=== PATIENT | female | born 1995 | race African-American/Black ===

== ENCOUNTER 2018-08-29 12:33 | Emergency (ER) | payer MEDICAID ==
[~2018-08-29] VITALS: Ht 167.6 cm; Wt 65.0 kg
[2018-08-29 12:44] VITALS: BP 127/76
== END 2018-08-29 15:55 | disposition left against medical advice (07) ==
LOC: ER 12:33
DX: R10.9 Unspecified abdominal pain (principal); Z53.21 Procedure and treatment not carried out due to patient leaving prior to being seen by health care provider

== ENCOUNTER 2019-03-29 21:45 | Observation (INO) | payer OTHER ==
[~2019-03-29] VITALS: Ht 157.5 cm; Wt 89.8 kg
[2019-03-30] MEDS ORDERED: ACETAMINOPHEN 500MG TABLET PO NR (00:15)
[2019-03-30] MEDS ORDERED: LACTATED RINGERS 1,000 ML IV NR (00:15)
== END 2019-03-30 03:15 | disposition home or self-care (01) ==
LOC: 8 EST LDRP 21:45
PROVIDERS: ADMIT Specialist; ATTEND Specialist
DX: O42.92 Full-term premature rupture of membranes, unspecified as to length of time between rupture and onset of labor (principal); Z3A.40 40 weeks gestation of pregnancy
CPT/HCPCS: 76815; 76818; 99281; G0378; 96360; 96361

== ENCOUNTER 2019-03-30 22:10 | Inpatient (IN) | payer OTHER ==
[~2019-03-30] VITALS: Ht 157.5 cm; Wt 89.4 kg
[2019-03-30] MEDS ORDERED: DEXT 5%/LR + PITOCIN 20UNITS/L 1,000 ML IV SCH (22:48)
[2019-03-30] MEDS ORDERED: CARBOPROST TROMETHAMINE 250 MCG/ML AMPUL IM PRN (23:00)
[2019-03-30] MEDS ORDERED: LIDOCAINE HCL 1% 20ML VIAL (Pyxis) INJ INFIL SCH (23:00)
[2019-03-30] MEDS ORDERED: BUTORPHANOL TARTRATE 2 MG/ML VIAL IV PRN (23:00)
[2019-03-30] MEDS ORDERED: METHYLERGONOVINE MALEATE 0.2 MG/ML IM PRN (23:00)
[2019-03-30] MEDS ORDERED: NALOXONE HCL 0.4 MG/ML 1ML VIAL IM PRN (23:00)
[2019-03-30] MEDS: ONDANSETRON HCL 4MG/2ML INJ IV PRN (23:16)
[2019-03-30] MEDS: LACTATED RINGERS 1,000 ML IV SCH (23:38)
[2019-03-30] MEDS ORDERED: ROPIVACAINE HCL/PF EPIDURAL 200 ML EPI SCH (23:45)
[2019-03-30 23:55] LABS: BASOPHILS % 0.4 % (0.0-2.0); EOSINOPHILS % 0.1 % (0.0-5.0); HEMOGLOBIN. 12.4 g/dL (12.0-16.0); LYMPHOCYTES % 7.6 % (20.0-50.0); MEAN CORPUSCULAR HEMOGLOBIN 32.2 pg (28.0-32.0); MEAN PLATELET VOLUME 11.1 fl (7.4-10.4); MONOCYTES % 6.7 % (2.0-8.0); NEUTROPHILS % 85.2 % (40.0-76.0); PLATELET 183 x1000/uL (130-400); RED BLOOD CELL COUNT 3.85 mill/uL (4.2-5.4); RED CELL DISTRIBUTION WIDTH 15.2 % (11.6-14.6)
[2019-03-30 23:56] LABS: INR 0.9; PARTIAL THROMBOPLASTIN TIME 27.5 sec (23.4-31.0); PROTHROMBIN TIME 9.5 sec (9.6-11.0)
[2019-03-31] MEDS ORDERED: PENICILLIN G POTASSIUM 5 MMU in DEXT 5% WATER 100 ML IV SCH ×2
[2019-03-31 00:24] LABS: HEPATITIS B SURFACE ANTIGEN NEGATIVE
[2019-03-31] MEDS: LACTATED RINGERS 1,000 ML IV SCH ×2 (00:53→08:45)
[2019-03-31 01:53] LABS: CLARITY URINE CLEAR (CLEAR); COLOR URINE YELLOW (YELLOW); KETONES URINE 1+ (NEGATIVE); LEUKOCYTE ESTERASE URINE NEGATIVE (NEGATIVE); NITRITE URINE NEGATIVE (NEGATIVE); OCCULT BLOOD URINE 1+ (NEGATIVE); PH URINE 6.5 (4.5-8.0); PROTEIN URINE TRACE (NEGATIVE); SPECIFIC GRAVITY URINE 1.025 (1.005-1.030)
[2019-03-31 02:28] LABS: *AMPHETAMINES SCREEN URINE NEGATIVE (NEGATIVE); *BARBITURATES SCREEN URINE NEGATIVE (NEGATIVE); *BENZODIAZEPINES SCREEN URINE NEGATIVE (NEGATIVE); *COCAINE SCREEN URINE NEGATIVE (NEGATIVE); METHADONE URINE SCREEN NEGATIVE (NEGATIVE); OPIATES URINE SCREEN NEGATIVE (NEGATIVE); PHENCYCLIDINE URINE SCREEN NEGATIVE (NEGATIVE)
[2019-03-31 02:29] LABS: CANNABINOID URINE SCREEN NEGATIVE (NEGATIVE)
[2019-03-31] MEDS: PENICILLIN G POTASSIUM 2.5 MMU in DEXTROSE 5% WATER 50 ML IV SCH ×2 (03:34→08:45)
[2019-03-31] MEDS: ONDANSETRON HCL 4MG/2ML INJ IV PRN (05:40)
[2019-03-31] MEDS ORDERED: MINERAL OIL 30ML BOTTLE PO ONE (09:30)
[2019-03-31] MEDS ORDERED: MISOPROSTOL 200MCG TABLET PO ONE (10:45)
[2019-03-31] MEDS ORDERED: DEXT 5%/LR + PITOCIN 20UNITS/L 1,000 ML IV SCH (11:01)
[2019-03-31] MEDS ORDERED: ACETAMINOPHEN WITH CODEINE 300/30MG TABLET PO PRN (11:15)
[2019-03-31] MEDS ORDERED: BENZOCAINE/LANOLIN/ALOE VERA SPRAY TOP PRN (11:15)
[2019-03-31] MEDS ORDERED: METHYLERGONOVINE MALEATE 0.2 MG/ML IM PRN (11:15)
[2019-03-31] MEDS ORDERED: LANOLIN OINT 7GM TUBE TOP PRN (11:15)
[2019-03-31] MEDS ORDERED: IBUPROFEN 400MG TABLET PO PRN (11:15)
[2019-03-31] MEDS ORDERED: HEMORRHOIDAL SUPP PR PRN (11:15)
[2019-03-31] MEDS ORDERED: GLYCERIN/WITCH HAZEL LEAF MEDICATED PAD TOP PRN (11:15)
[2019-03-31] MEDS ORDERED: DIPHENHYDRAMINE 25MG CAPSULE PO PRN (11:15)
[2019-03-31] MEDS: METRONIDAZOLE 500 MG PREMIX 100 ML IV SCH ×2 (12:20→23:46)
[2019-03-31 13:04] LABS: HEMATOCRIT. 32.6 % (36.0-48.0); MEAN CORPUSCULAR HEMOGLOBIN 32.3 pg (28.0-32.0); MEAN PLATELET VOLUME 9.5 fl (7.4-10.4); PLATELET 159 x1000/uL (130-400)
[2019-03-31 13:15] VITALS: BP 135/77
[2019-03-31 14:30] VITALS: BP 124/69
[2019-03-31 16:20] LABS: PLATELET ESTIMATE NORMAL
[2019-03-31] MEDS ORDERED: METRONIDAZOLE 500 MG PREMIX 100 ML IV SCH (17:00)
[2019-03-31] MEDS: IBUPROFEN 800MG TABLET PO PRN (18:23)
[2019-03-31 18:35] VITALS: BP 123/59
[2019-03-31 19:45] VITALS: BP 123/59
[2019-03-31] MEDS: DOCUSATE SODIUM 100MG CAPSULE PO SCH (21:45)
[2019-04-01 04:30] VITALS: BP 118/56
[2019-04-01 07:54] LABS: BASOPHILS % 0.4 % (0.0-2.0); EOSINOPHILS % 0.1 % (0.0-5.0); HEMATOCRIT. 24.7 % (36.0-48.0); HEMOGLOBIN. 8.3 g/dL (12.0-16.0); LYMPHOCYTES % 10.6 % (20.0-50.0); MEAN CORPUSCULAR HEMOGLOBIN 32.4 pg (28.0-32.0); MEAN CORPUSCULAR VOLUME 96.4 fL (81.0-99.0); MEAN PLATELET VOLUME 10.5 fl (7.4-10.4); MONOCYTES % 7.8 % (2.0-8.0); NEUTROPHILS % 81.1 % (40.0-76.0); PLATELET 144 x1000/uL (130-400); RED BLOOD CELL COUNT 2.56 mill/uL (4.2-5.4); RED CELL DISTRIBUTION WIDTH 15.2 % (11.6-14.6)
[2019-04-01 08:00] VITALS: BP 131/47
[2019-04-01] MEDS: IBUPROFEN 800MG TABLET PO PRN (09:30)
[2019-04-01] MEDS: PRENATAL VIT/FE FUMARATE/FA TABLET PO SCH (09:30)
[2019-04-01] MEDS: FERROUS SULFATE 325MG TABLET PO SCH ×2 (09:32→18:14)
[2019-04-01] MEDS ORDERED: MEDROXYPROGESTERONE ACETATE 150MG/ML VIAL IM NR (12:00)
[2019-04-01] MEDS: METRONIDAZOLE 500 MG PREMIX 100 ML IV SCH (12:14)
[2019-04-01 20:03] VITALS: BP 122/58
[2019-04-01] MEDS: DOCUSATE SODIUM 100MG CAPSULE PO SCH (21:09)
[2019-04-02 04:30] VITALS: BP 112/62
[2019-04-02 08:00] VITALS: BP 125/58
[2019-04-02] MEDS: PRENATAL VIT/FE FUMARATE/FA TABLET PO SCH (09:02)
[2019-04-02] MEDS: IBUPROFEN 800MG TABLET PO PRN (09:02)
[2019-04-02] MEDS: FERROUS SULFATE 325MG TABLET PO SCH (09:02)
== END 2019-04-02 11:20 | disposition home or self-care (01) | DRG 560 ==
LOC: 8 EST LDRP 22:10 → OBSVTOIN 22:10 → 8EST 03-31 13:15
PROVIDERS: ADMIT Specialist; ATTEND Specialist
PROC: 0DQP0ZZ Repair Rectum, Open Approach (ICD-10-PCS; principal; 2019-03-31)
PROC: 10E0XZZ Delivery of Products of Conception, External Approach (ICD-10-PCS; 2019-03-31)
PROC: 3E0R3BZ Introduction of Anesthetic Agent into Spinal Canal, Percutaneous Approach (ICD-10-PCS; 2019-03-31)
PROC: 00HU33Z Insertion of Infusion Device into Spinal Canal, Percutaneous Approach (ICD-10-PCS; 2019-03-31)
DX: O99.824 Streptococcus B carrier state complicating childbirth (principal); O98.82 Other maternal infectious and parasitic diseases complicating childbirth; O71.4 Obstetric high vaginal laceration alone; B95.1 Streptococcus, group B, as the cause of diseases classified elsewhere; O90.81 Anemia of the puerperium; D64.9 Anemia, unspecified; O69.81X0 Labor and delivery complicated by cord around neck, without compression, not applicable or unspecified; Z3A.40 40 weeks gestation of pregnancy; Z37.0 Single live birth
CPT/HCPCS: 36415; 80305; 86592; 86703; 86762; 86850; 86900; 87340; 99281; G0378; J0595; J1050; J2210; J2405; J2540; J2590; J2795; J3490; J7060; A4315

== ENCOUNTER 2020-11-08 20:42 | Observation (INO) | payer MEDICAID, OTHER ==
[~2020-11-08] VITALS: Ht 160 cm; Wt 87.1 kg
[2020-11-08] MEDS ORDERED: PREN1TAB78 PO (21:09)
[2020-11-08 21:15] LABS: CLARITY URINE CLOUDY (CLEAR); COLOR URINE YELLOW (YELLOW); KETONES URINE NEGATIVE (NEGATIVE); LEUKOCYTE ESTERASE URINE 3+ (NEGATIVE); NITRITE URINE NEGATIVE (NEGATIVE); OCCULT BLOOD URINE NEGATIVE (NEGATIVE); PH URINE 6.5 (4.5-8.0); PROTEIN URINE TRACE (NEGATIVE); SPECIFIC GRAVITY URINE 1.027 (1.005-1.030)
== END 2020-11-08 22:37 | disposition home or self-care (01) ==
LOC: 8 EST LDRP 20:42
PROVIDERS: ADMIT Obstetrics & Gynecology; ATTEND Obstetrics & Gynecology
DX: O62.9 Abnormality of forces of labor, unspecified (principal); O26.893 Other specified pregnancy related conditions, third trimester; R10.9 Unspecified abdominal pain; Z3A.33 33 weeks gestation of pregnancy
CPT/HCPCS: 59025; 76805; 76817; 76818; 81003; G0378; 99281

== ENCOUNTER 2020-12-23 09:00 | Inpatient (IN) | payer MEDICAID ==
[~2020-12-23] VITALS: Ht 160 cm; Wt 85.3 kg
[~2020-12-23 09:00] MED LIST: PREN1TAB78 PO
[2020-12-23] MEDS ORDERED: LIDOCAINE HCL 1% 20ML VIAL (Pyxis) INJ INFIL SCH (10:15)
[2020-12-23] MEDS ORDERED: NALOXONE HCL 0.4 MG/ML 1ML VIAL IM PRN (10:15)
[2020-12-23] MEDS ORDERED: DEXT 5%/LR + PITOCIN 20UNITS/L 1,000 ML IV SCH ×3 (10:15→20:00)
[2020-12-23] MEDS ORDERED: MISOPROSTOL 100MCG TABLET VG SCH (10:15)
[2020-12-23] MEDS ORDERED: BUTORPHANOL TARTRATE 2 MG/ML VIAL IV PRN (10:15)
[2020-12-23 10:29] LABS: BASOPHILS % 0.2 % (0.0-2.0); EOSINOPHILS % 0.8 % (0.0-5.0); HEMATOCRIT. 34.3 % (36.0-48.0); HEMOGLOBIN. 11.4 g/dL (12.0-16.0); LYMPHOCYTES % 20.8 % (20.0-50.0); MEAN CORPUSCULAR HEMOGLOBIN 28.8 pg (28.0-32.0); MEAN PLATELET VOLUME 8.8 fl (7.4-10.4); MONOCYTES % 9.5 % (2.0-8.0); NEUTROPHILS % 68.7 % (40.0-76.0); PLATELET 211 x1000/uL (130-400); RED BLOOD CELL COUNT 3.94 mill/uL (4.2-5.4); RED CELL DISTRIBUTION WIDTH 16.6 % (11.6-14.6)
[2020-12-23 10:36] LABS: CLARITY URINE CLEAR (CLEAR); COLOR URINE YELLOW (YELLOW); KETONES URINE NEGATIVE (NEGATIVE); LEUKOCYTE ESTERASE URINE 3+ (NEGATIVE); NITRITE URINE NEGATIVE (NEGATIVE); OCCULT BLOOD URINE NEGATIVE (NEGATIVE); PROTEIN URINE NEGATIVE (NEGATIVE); SPECIFIC GRAVITY URINE 1.012 (1.005-1.030); UROBILINOGEN URINE 0.2 E.U./dL (0.2-1.0)
[2020-12-23] MEDS: LACTATED RINGERS 1,000 ML IV SCH ×2 (10:36→10:58)
[2020-12-23 10:41] LABS: INR 0.9; PARTIAL THROMBOPLASTIN TIME 26.7 sec (23.4-31.0)
[2020-12-23] MEDS ORDERED: PENICILLIN G POTASSIUM 5 MMU in DEXT 5% WATER 100 ML IV SCH (11:00)
[2020-12-23 11:58] LABS: HEPATITIS B SURFACE ANTIGEN NEGATIVE
[2020-12-23 12:53] LABS: *COCAINE SCREEN URINE NEGATIVE (NEGATIVE); CANNABINOID URINE SCREEN NEGATIVE (NEGATIVE); METHADONE URINE SCREEN NEGATIVE (NEGATIVE); OPIATES URINE SCREEN NEGATIVE (NEGATIVE)
[2020-12-23 12:54] LABS: PHENCYCLIDINE URINE SCREEN NEGATIVE (NEGATIVE)
[2020-12-23 12:55] LABS: *BARBITURATES SCREEN URINE NEGATIVE (NEGATIVE); *BENZODIAZEPINES SCREEN URINE NEGATIVE (NEGATIVE)
[2020-12-23 12:57] LABS: *AMPHETAMINES SCREEN URINE NEGATIVE (NEGATIVE)
[2020-12-23 16:10] VITALS: BP 124/73
[2020-12-23 16:40] VITALS: BP 113/52
[2020-12-23] MEDS ORDERED: IBUPROFEN 800MG TABLET PO PRN ×2 (19:00→20:00)
[2020-12-23] MEDS ORDERED: GLYCERIN/WITCH HAZEL LEAF MEDICATED PAD TOP PRN ×2 (19:00→20:00)
[2020-12-23] MEDS ORDERED: BENZOCAINE/LANOLIN/ALOE VERA SPRAY TOP PRN ×2 (19:00→20:00)
[2020-12-23] MEDS ORDERED: IBUPROFEN 400MG TABLET PO PRN (19:00)
[2020-12-23 19:31] VITALS: BP 133/78
[2020-12-23] MEDS ORDERED: BISACODYL 10MG SUPP PR PRN (20:00)
[2020-12-23] MEDS ORDERED: DIPHENHYDRAMINE 25MG CAPSULE PO PRN (20:00)
[2020-12-23] MEDS ORDERED: HEMORRHOIDAL SUPP PR PRN (20:00)
[2020-12-23] MEDS ORDERED: LANOLIN OINT 7GM TUBE TOP PRN (20:00)
[2020-12-23] MEDS ORDERED: RHO(D) IMMUNE GLOBULIN 300 MCG/SYR IM PRN (20:00)
[2020-12-23] MEDS ORDERED: ACETAMINOPHEN WITH CODEINE 300/30MG TABLET PO PRN (20:00)
[2020-12-23] MEDS: DOCUSATE SODIUM 100MG CAPSULE PO SCH (20:31)
[2020-12-23] MEDS: SIMETHICONE 80MG TABLET CHEW PO SCH (20:31)
[2020-12-23] MEDS: MAGNESIUM/ALUMINUM HYDROXIDE/SIMETHICONE 30ML UDC PO SCH (20:31)
[2020-12-23 23:45] VITALS: BP 118/75
[2020-12-24 07:45] LABS: BASOPHILS % 0.3 % (0.0-2.0); EOSINOPHILS % 0.8 % (0.0-5.0); HEMATOCRIT. 30.6 % (36.0-48.0); HEMOGLOBIN. 10.2 g/dL (12.0-16.0); LYMPHOCYTES % 14.9 % (20.0-50.0); MEAN CORPUSCULAR VOLUME 87.3 fL (81.0-99.0); MEAN PLATELET VOLUME 8.7 fl (7.4-10.4); MONOCYTES % 8.8 % (2.0-8.0); NEUTROPHILS % 75.2 % (40.0-76.0); PLATELET 201 x1000/uL (130-400); RED CELL DISTRIBUTION WIDTH 16.6 % (11.6-14.6)
[2020-12-24 08:00] VITALS: BP 106/67
[2020-12-24] MEDS: PRENATAL VIT/FE FUMARATE/FA TABLET PO SCH (09:14)
[2020-12-24] MEDS: MAGNESIUM/ALUMINUM HYDROXIDE/SIMETHICONE 30ML UDC PO SCH ×4 (09:14→20:09)
[2020-12-24] MEDS: FERROUS SULFATE 325MG TABLET PO SCH ×2 (09:14→17:44)
[2020-12-24] MEDS: SIMETHICONE 80MG TABLET CHEW PO SCH ×4 (09:15→20:07)
[2020-12-24 16:30] VITALS: BP 109/54
[2020-12-24 19:30] VITALS: BP 139/62
[2020-12-24] MEDS: DOCUSATE SODIUM 100MG CAPSULE PO SCH (20:08)
[2020-12-25] VITALS: BP 126/68
[2020-12-25 06:02] LABS: BASOPHILS % 0.4 % (0.0-2.0); EOSINOPHILS % 2.3 % (0.0-5.0); HEMATOCRIT. 30.7 % (36.0-48.0); HEMOGLOBIN. 9.8 g/dL (12.0-16.0); LYMPHOCYTES % 20.7 % (20.0-50.0); MEAN CORPUSCULAR HEMOGLOBIN 28.7 pg (28.0-32.0); MEAN CORPUSCULAR VOLUME 89.5 fL (81.0-99.0); MEAN PLATELET VOLUME 8.3 fl (7.4-10.4); MONOCYTES % 8.1 % (2.0-8.0); NEUTROPHILS % 68.5 % (40.0-76.0); PLATELET 205 x1000/uL (130-400); RED BLOOD CELL COUNT 3.43 mill/uL (4.2-5.4); RED CELL DISTRIBUTION WIDTH 17.1 % (11.6-14.6)
[2020-12-25] MEDS ORDERED: FERR325T23 PO (07:25)
[2020-12-25] MEDS ORDERED: IBUP-2030 PO (07:25)
[2020-12-25 07:30] VITALS: BP 123/63
[2020-12-25] MEDS: MAGNESIUM/ALUMINUM HYDROXIDE/SIMETHICONE 30ML UDC PO SCH (08:03)
[2020-12-25] MEDS: SIMETHICONE 80MG TABLET CHEW PO SCH (08:04)
[2020-12-25] MEDS: PRENATAL VIT/FE FUMARATE/FA TABLET PO SCH (08:04)
[2020-12-25] MEDS: FERROUS SULFATE 325MG TABLET PO SCH (08:04)
== END 2020-12-25 11:50 | disposition home or self-care (01) | DRG 560 ==
LOC: OBSVTOIN 09:00 → 8 EST LDRP 09:00 → 8EST 16:00
PROVIDERS: ADMIT Obstetrics & Gynecology; ATTEND Obstetrics & Gynecology
PROC: 0KQM0ZZ Repair Perineum Muscle, Open Approach (ICD-10-PCS; principal; 2020-12-23)
PROC: 10E0XZZ Delivery of Products of Conception, External Approach (ICD-10-PCS; 2020-12-23)
DX: O77.0 Labor and delivery complicated by meconium in amniotic fluid (principal); O70.1 Second degree perineal laceration during delivery; O99.03 Anemia complicating the puerperium; Z37.0 Single live birth; Z3A.39 39 weeks gestation of pregnancy
CPT/HCPCS: 36415; 80305; 81003; 85025; 86592; 86703; 86762; 86850; 86900; 87340; 99281; J0595; J2540; J2590; J7060; J7120

== ENCOUNTER 2025-05-29 16:39 | Emergency (ER) | payer MEDICAID, OTHER ==
[~2025-05-29] VITALS: Ht 165.1 cm; Wt 63.0 kg
[~2025-05-29 16:39] MED LIST changes: +FERR325T23 PO; +IBUP-2030 PO
[2025-05-29 16:43] VITALS: O2SAT 98
[2025-05-29 17:36] LABS: BASOPHILS % 0.3 % (0.0-2.0); EOSINOPHILS % 5.7 % (0.0-5.0); HEMATOCRIT. 36.8 % (36.0-48.0); HEMOGLOBIN. 12.4 g/dL (12.0-16.0); LYMPHOCYTES % 34.3 % (20.0-50.0); MEAN PLATELET VOLUME 9.2 fl (7.4-10.4); MONOCYTES % 6.4 % (2.0-8.0); NEUTROPHILS % 53.3 % (40.0-76.0); PLATELET 198 x1000/uL (130-400); RED BLOOD CELL COUNT 3.74 mill/uL (4.2-5.4); RED CELL DISTRIBUTION WIDTH 12.3 % (11.6-14.6)
[2025-05-29 17:49] LABS: CREATININE 0.9 mg/dL (0.6-1.0)
[2025-05-29 17:50] LABS: UREA NITROGEN BLOOD 9 mg/dL (9-23)
[2025-05-29 17:51] LABS: ASPARTATE AMINOTRANSFERASE 19 IU/L (<34)
[2025-05-29 17:52] LABS: BILIRUBIN DIRECT < 0.1 mg/dL (<=3.0); BILIRUBIN TOTAL 0.3 mg/dL (0.1-1.0); PROTEIN TOTAL 7.5 g/dL (6.0-8.3)
[2025-05-29 17:54] LABS: HCG SCREEN NEGATIVE
[2025-05-29 20:20] LABS: CLARITY URINE CLOUDY (CLEAR); COLOR URINE YELLOW (YELLOW); GLUCOSE URINE NEGATIVE (NEGATIVE); KETONES URINE TRACE (NEGATIVE); LEUKOCYTE ESTERASE URINE 2+ (NEGATIVE); NITRITE URINE POSITIVE (NEGATIVE); OCCULT BLOOD URINE NEGATIVE (NEGATIVE); PH URINE 6.0 (4.5-8.0); PROTEIN URINE TRACE (NEGATIVE); SPECIFIC GRAVITY URINE 1.026 (1.005-1.030); UROBILINOGEN URINE 1.0 E.U./dL (0.2-1.0)
[2025-05-29 20:35] LABS: BACTERIA URINE 4+; RBC URINE 0-2 /hpf (0-2); SQUAMOUS EPITHELIAL CELL URINE 2+ /lpf (RARE/1+)
[2025-05-29] MEDS: DIATR MEGLU/DIATRIZOATE SOLN 120ML ONE (20:46)
[2025-05-29] MEDS ORDERED: AMOX1TAB16 MT (22:22)
[2025-05-29 23:09] VITALS: BP 128/69; PULSE 81; RESP 15; TEMP 36.5; O2SAT 100
[2025-05-29] MEDS: IOHEXOL-300 100 ML BOTTLE ONE (23:16)
== END 2025-05-29 23:06 | disposition home or self-care (01) ==
LOC: ER 16:39
DX: N82.4 Other female intestinal-genital tract fistulae (principal); N39.0 Urinary tract infection, site not specified; Z79.899 Other long term (current) drug therapy
CPT/HCPCS: 80076; 80048; 81003; 84703; 85025; 36415; 74177; 99285; Q9967; Q9963; Z7610